=== PATIENT | female | born 1960 | race Two or more races ===

== ENCOUNTER 2020-01-04 09:38 | Outpatient (REF) | payer MEDICAID, SELFPAY ==
--- NOTE | 2020-01-04 09:54 | XR_ITS ---
EXAMINATION: RIGHT KNEE, RIGHT HIP AND LUMBAR SPINE. CLINICAL INFORMATION: Pain. COMPARISON: None. TECHNIQUE: Right hip 2 views. Right knee 2 views. Lumbar spine 5 views. FINDINGS: LUMBAR SPINE: There is normal lumbar lordosis. The vertebral heights, alignment and disc heights are normal. There is no pars defect or listhesis on oblique views. No fracture or lytic process. The paravertebral soft tissues are normal. RIGHT HIP: There is no visible acute fracture, dislocation or subluxation. No bony abnormality seen. The soft tissues unremarkable. RIGHT KNEE: There is minimal loss of medial compartment joint space. Otherwise no visible acute fracture, dislocation or bony erosive changes. No abnormal joint effusion seen. XR/XR hip RT min 2V IMPRESSION: Unremarkable right hip and lumbar spine exam. Early minimal degenerative changes medial compartment right knee.
--- NOTE | 2020-01-04 09:54 | XR_ITS ---
EXAMINATION: RIGHT KNEE, RIGHT HIP AND LUMBAR SPINE. CLINICAL INFORMATION: Pain. COMPARISON: None. TECHNIQUE: Right hip 2 views. Right knee 2 views. Lumbar spine 5 views. FINDINGS: LUMBAR SPINE: There is normal lumbar lordosis. The vertebral heights, alignment and disc heights are normal. There is no pars defect or listhesis on oblique views. No fracture or lytic process. The paravertebral soft tissues are normal. RIGHT HIP: There is no visible acute fracture, dislocation or subluxation. No bony abnormality seen. The soft tissues unremarkable. RIGHT KNEE: There is minimal loss of medial compartment joint space. Otherwise no visible acute fracture, dislocation or bony erosive changes. No abnormal joint effusion seen. XR/XR knee RT 2V IMPRESSION: Unremarkable right hip and lumbar spine exam. Early minimal degenerative changes medial compartment right knee.
--- NOTE | 2020-01-04 09:55 | XR_ITS ---
EXAMINATION: RIGHT KNEE, RIGHT HIP AND LUMBAR SPINE. CLINICAL INFORMATION: Pain. COMPARISON: None. TECHNIQUE: Right hip 2 views. Right knee 2 views. Lumbar spine 5 views. FINDINGS: LUMBAR SPINE: There is normal lumbar lordosis. The vertebral heights, alignment and disc heights are normal. There is no pars defect or listhesis on oblique views. No fracture or lytic process. The paravertebral soft tissues are normal. RIGHT HIP: There is no visible acute fracture, dislocation or subluxation. No bony abnormality seen. The soft tissues unremarkable. RIGHT KNEE: There is minimal loss of medial compartment joint space. Otherwise no visible acute fracture, dislocation or bony erosive changes. No abnormal joint effusion seen. XR/XR lumbar spine 4V min IMPRESSION: Unremarkable right hip and lumbar spine exam. Early minimal degenerative changes medial compartment right knee.
== END 2020-01-04 09:39 | disposition home or self-care (01) ==
LOC: HO.XRAY 09:38
PROVIDERS: PCP Family Medicine; Visit Provider Family Medicine
DX: M54.41 Lumbago with sciatica, right side (principal); M25.561 Pain in right knee; M25.551 Pain in right hip
CPT/HCPCS: 72110; 73502; 73560

== ENCOUNTER 2020-02-08 11:23 | Outpatient (REF) | payer MEDICAID, SELFPAY ==
--- NOTE | 2020-02-08 11:33 | MM_ITS ---
EXAMINATION: MM DIAGNOSTIC DIGITAL BREAST TOMOSYNTHESIS, BILATERAL US TARGETED BREAST, BILATERAL CLINICAL INFORMATION: Bilateral breast pain. The lifetime risk of breast cancer based on the Tyrer-Cuzick Model is 7.1%. COMPARISON: Mammography: None TECHNIQUE: Digital breast tomosynthesis is performed in both the craniocaudal and mediolateral oblique views along with computer-aided detection (CAD). Synthesized 2D images are generated from the tomosynthesis. Bilateral targeted breast ultrasound performed. FINDINGS: The breasts are extremely dense, which lowers the sensitivity of mammography (ACR BI-RADS breast composition Category d). No right breast mass or suspicious grouping of microcalcifications identified. No region of architectural distortion. Within the superior medial aspect of the left breast, there is an approximately 1.4 x 1.0 x 1.1 cm circumscribed density lying approximately 8 cm from the nipple. No associated spiculation or microcalcifications is identified. Targeted ultrasound scanning of the right breast did not demonstrate any abnormal cystic or solid mass. No abnormal region of distal sound shadowing is seen. Targeted ultrasound evaluation of the left breast demonstrated at the 11 o'clock position approximately 8 cm from the nipple, a hypoechoic circumscribed mass without internal vascularity. This measures approximately 1.2 x 0.8 x 0.7 cm in size. No distal sound shadowing is identified. There is minimal distal sound enhancement. Ultrasound-guided biopsy is recommended. Results are discussed with the patient at time of visit. MM/MM tomosynthesis diagnostic BI IMPRESSION: Left breast lesion 11 o'clock position for which ultrasound-guided breast biopsy is recommended. No abnormality in the region of pain. ASSESSMENT: BI-RADS 4: Suspicious RECOMMENDATION: Ultrasound-guided core biopsy left breast.
--- NOTE | 2020-02-08 11:34 | US_ITS ---
EXAMINATION: Bilateral targeted breast ultrasound. Clinical: Bilateral breast pain. Left breast mass 11:00 position. EXAMINATION: Bilateral targeted breast ultrasound. COMPARISON: Mammography of February 08, 2020 Targeted ultrasound scanning of the right breast did not demonstrate any abnormal cystic or solid mass. No abnormal region of distal sound shadowing is seen. Targeted ultrasound evaluation of the left breast demonstrated at the 11 o'clock position approximately 8 cm from the nipple, a hypoechoic circumscribed mass without internal vascularity. This measures approximately 1.2 x 0.8 x 0.7 cm in size. No distal sound shadowing is identified. There is minimal distal sound enhancement. Ultrasound-guided biopsy is recommended. Results are discussed with the patient at time of visit. US/US breast RT limited IMPRESSION: Left breast lesion 11 o'clock position for which ultrasound-guided breast biopsy is recommended. No abnormality in the region of pain. ASSESSMENT: BI-RADS 4: Suspicious RECOMMENDATION: Ultrasound-guided core biopsy left breast.
--- NOTE | 2020-02-08 11:34 | US_ITS ---
EXAMINATION: Bilateral targeted breast ultrasound. Clinical: Bilateral breast pain. Left breast mass 11:00 position. EXAMINATION: Bilateral targeted breast ultrasound. COMPARISON: Mammography of February 08, 2020 Targeted ultrasound scanning of the right breast did not demonstrate any abnormal cystic or solid mass. No abnormal region of distal sound shadowing is seen. Targeted ultrasound evaluation of the left breast demonstrated at the 11 o'clock position approximately 8 cm from the nipple, a hypoechoic circumscribed mass without internal vascularity. This measures approximately 1.2 x 0.8 x 0.7 cm in size. No distal sound shadowing is identified. There is minimal distal sound enhancement. Ultrasound-guided biopsy is recommended. Results are discussed with the patient at time of visit. US/US breast LT limited IMPRESSION: Left breast lesion 11 o'clock position for which ultrasound-guided breast biopsy is recommended. No abnormality in the region of pain. ASSESSMENT: BI-RADS 4: Suspicious RECOMMENDATION: Ultrasound-guided core biopsy left breast.
== END 2020-02-08 11:24 | disposition home or self-care (01) ==
LOC: HO.MAMMO 11:23
PROVIDERS: PCP Family Medicine; Visit Provider Family Medicine
DX: N64.4 Mastodynia (principal)
CPT/HCPCS: 76642; 77062; 77066

== ENCOUNTER 2020-02-12 09:08 | Outpatient (REF) | payer MEDICAID, SELFPAY ==
--- NOTE | 2020-02-12 | MM_ITS ---
EXAMINATION: MM DIAGNOSTIC DIGITAL MAMMOGRAPHY, LEFT CLINICAL INFORMATION: Post biopsy left breast. DIGITAL POST-PROCEDURE MAMMOGRAPHY: Breast density: The tissue is heterogeneously dense which may obscure small masses. BI-RADS version 5, category C. There are no new mammographic findings demonstrated. The postprocedure 2-view direct digital mammogram reveals satisfactory positioning of the biopsy clip. The patient tolerated the procedure well and, after assuring adequate hemostasis, was discharged in good condition after reviewing postbiopsy breast care instructions. Final pathology results are pending. MM/MM diagnostic mammo unilat LT IMPRESSION: 1. No immediate complication from ultrasound-guided percutaneous biopsy left breast. 2. Ultrasound was used to localize and guide marker clip placement. 3. The 2-view direct digital postprocedure mammogram reveals satisfactory positioning of the biopsy clip. 4. Final pathology results are pending. A separate report with final recommendations will be issued once these results are made available.
--- NOTE | 2020-02-12 09:21 | US_ITS ---
PROCEDURE: US GUIDED BREAST BIOPSY, left breast CLINICAL INFORMATION: Suspicious hypoechoic lesion COMPARISON: February 08, 2020 PROCEDURAL DETAILS: The details of the procedure, as well as the risks, benefits, and alternatives to the procedure were explained to the patient in detail and all of her questions were answered, after which written informed consent was obtained. Site and side were confirmed. Prior to the procedure, sonography revealed a 1.1 x 0.8 x 0.8 cm hypoechoic solid-appearing lesion.. A time-out was performed, the lesion intended for biopsy was targeted, and the skin of the left breast was then prepped and draped in the usual sterile fashion. Using sonographic guidance, sterile technique, and 1% lidocaine without epinephrine for local anesthesia, multiple automated core biopsies were obtained through the targeted area with a 14G spring loaded Achieve core biopsy device. There was real-time confirmation of appropriate needle passage. Sampling was documented. At the completion of tissue sampling, a single coil-shaped metallic clip was deposited at the biopsy site. There was no evidence of immediate complication. SPECIMEN: An appropriate sample was obtained. DIGITAL POST-PROCEDURE MAMMOGRAPHY: Breast density: The tissue is heterogeneously dense which may obscure small masses. BI-RADS version 5, category C. There are no new mammographic findings demonstrated. The postprocedure 2-view direct digital mammogram reveals satisfactory positioning of the biopsy clip. The patient tolerated the procedure well and, after assuring adequate hemostasis, was discharged in good condition after reviewing postbiopsy breast care instructions. Final pathology results are pending. US/US breast ndl core biopsy LT IMPRESSION: 1. No immediate complication from ultrasound-guided percutaneous biopsy left breast. 2. Ultrasound was used to localize and guide marker clip placement. 3. The 2-view direct digital postprocedure mammogram reveals satisfactory positioning of the biopsy clip. 4. Final pathology results are pending. A separate report with final recommendations will be issued once these results are made available.
== END 2020-02-12 09:09 | disposition home or self-care (01) ==
LOC: HO.MAMMO 09:08
PROVIDERS: Visit Provider Surgery
DX: N63.22 Unspecified lump in the left breast, upper inner quadrant (principal); Z80.3 Family history of malignant neoplasm of breast
CPT/HCPCS: 19083; 77065; 88305; 99202; A4648

== ENCOUNTER → 2020-02-15 11:19 | Outpatient (BNVA) | payer MEDICAID, SELFPAY | PROVIDERS: PCP Family Medicine; Visit Provider Surgery | DX: D24.9 Benign neoplasm of unspecified breast (principal) | CPT/HCPCS: 99212 ==

== ENCOUNTER → 2020-02-19 08:44 | Outpatient (BNVA) | payer MEDICAID, SELFPAY | PROVIDERS: PCP Family Medicine; Visit Provider Physician Assistant | DX: Z76.89 Persons encountering health services in other specified circumstances (principal) ==

== ENCOUNTER 2020-04-04 14:00 | Outpatient (RCR) | payer MEDICAID, SELFPAY | END 2020-04-17 08:37 | disposition other institution (70) | LOC: HO.PTWFD 14:00 | PROVIDERS: PCP Family Medicine; Visit Provider Family Medicine | DX: M25.551 Pain in right hip (principal); M25.561 Pain in right knee; G89.29 Other chronic pain | CPT/HCPCS: 97012; 97014; 97110; 97112; 97140; 97162; 97530; 97535 ==

== ENCOUNTER 2020-04-30 08:20 | Emergency (ER) | payer MEDICAID, SELFPAY ==
[2020-04-30 08:48] VITALS: BP 139/69; PULSE 72; RESP 18; TEMP 36.7; O2SAT 97; BMI 35.4
--- NOTE | 2020-04-30 09:24 | ED.GENADULT ---
HPI - General Adult General Chief complaint: Headache <ANTONELLA Gutiérrez Last Filed: 04/30/20 09:43> Stated complaint: headache, eye pain <ANTONELLA Gutiérrez Last Filed: 04/30/20 09:43> Time Seen by Provider: 04/30/20 08:57 <ANTONELLA Gutiérrez Last Filed: 04/30/20 09:43> Source: patient <ANTONELLA Gutiérrez Last Filed: 04/30/20 09:43> Mode of arrival: ambulatory <ANTONELLA Gutiérrez Last Filed: 04/30/20 09:43> Limitations: language barrier <ANTONELLA Gutiérrez Last Filed: 04/30/20 09:43> History of Present Illness HPI narrative: 59 y/o female presenting with right eye pain and redness since last night. She also reports a right sided headache for the last 2 days. She gets headaches on/off for the last 2 years. She takes Advil for them with improvement. She denies weakness, numbness, difficulty ambulating. She has photophobia and sensitivity to sound. She reports she has not been wearing her prescription eye glasses because they are broken. She denies foreign body in the right eye but states it hurts every time she blinks. Increased tearing but no discharge. <ANTONELLA Gutiérrez - Last Filed: 04/30/20 09:43> MD complaint: eye pain and headache. <ANTONELLA Gutiérrez Last Filed: 04/30/20 09:43> Onset (ago): day(s) <ANTONELLA Gutiérrez Last Filed: 04/30/20 09:43> Location: head and eyes <ANTONELLA Gutiérrez Last Filed: 04/30/20 09:43> Radiation: non-radiation <ANTONELLA Gutiérrez Last Filed: 04/30/20 09:43> Severity: moderate <ANTONELLA Gutiérrez Last Filed: 04/30/20 09:43> Severity scale (1-10): 5 <ANTONELLA Gutiérrez Last Filed: 04/30/20 09:43> Quality: burning and aching <ANTONELLA Gutiérrez Last Filed: 04/30/20 09:43> Pain Consistency: intermittent <ANTONELLA Gutiérrez Last Filed: 04/30/20 09:43> Relieving factors: none <ANTONELLA Gutiérrez Last Filed: 04/30/20 09:43> Exacerbating factors: other (light and sound make headache worse, blinking makes eye pain worse) <ANTONELLA Gutiérrez Last Filed: 04/30/20 09:43> Associated symptoms: denies other symptoms <ANTONELLA Gutiérrez Last Filed: 04/30/20 09:43> Treatments prior to arrival: NSAID <ANTONELLA Gutiérrez Last Filed: 04/30/20 09:43> Related Data Home medications: Home Medications Medication Instructions Recorded Confirmed cholecalciferol (vitamin D3) 50 50 mcg PO DAILY 02/12/20 02/19/20 mcg (2,000 unit) capsule Previous Rx's Medication Instructions Recorded methylcellulose (laxative) 500 mg 500 mg PO BID #60 tab 02/19/20 tablet [id number] 1 cap PO Q6H PRN #10 cap 04/30/20 [Fioricet] gentamicin 1 drp OPHTHALMIC-RIGHT Q4H #5 ml 04/30/20 <ANTONELLA Gutiérrez Last Filed: 04/30/20 09:43> Allergies/adverse reactions: Allergies Allergy/AdvReac Type Severity Reaction Status Date / Time No Known Allergies Allergy Verified 02/12/20 08:37 <ANTONELLA Gutiérrez Last Filed: 04/30/20 09:43> Review of Systems Review of Systems: Constitutional: No Fever, No Chills ENT/Mouth: No sore throat, No Rhinorrhea, No Swallowing Difficulty Eyes: + Eye Pain, No Swelling, + Redness Cardiovascular: No Chest Pain, No SOB Respiratory: No Cough, No Sputum Gastrointestinal: No Nausea, No Vomiting, No Diarrhea, No abdominal Pain Skin: No Skin Lesions, No rash Neuro: No Weakness, No Numbness, No Dizziness, + Headache Heme/Lymph: No Bruising, No Lymphadenopathy <ANTONELLA Gutiérrez Last Filed: 04/30/20 09:43> [facility] Past Medical History Attestation statement: The following information was validated with the patient. <ANTONELLA Gutiérrez - Last Filed: 04/30/20 09:43> Medical History: Medical History Abdominal pain Abnormality of left breast on screening mammogram Change in bowel function Pre-diabetes <ANTONELLA Gutiérrez - Last Filed: 04/30/20 09:43> Surgical History: Surgical History History of delivery <ANTONELLA Gutiérrez - Last Filed: 04/30/20 09:43> Family History Family History: Family History Sister History of breast cancer <ANTONELLA Gutiérrez - Last Filed: 04/30/20 09:43> Social History Social History: Social History (Updated 02/19/20 @ 11:00 by Maritza Coy PA-C) Alcohol intake: never Smoking Status: Never smoker Use of substances other than those prescribed or required for medical reasons: No Advance Directives: Yes Advance Directives Information Provided: Yes Advance Directives on File: No Current occupational status: unemployed <ANTONELLA Gutiérrez - Last Filed: 04/30/20 09:43> Physical Exam Vital Signs: Vital Signs: Last Vital Signs Temp 98.1 F 04/30/20 08:48 Pulse 72 04/30/20 08:48 Resp 18 04/30/20 08:48 BP 139/69 04/30/20 08:48 Pulse Ox 97 04/30/20 08:48 Body Mass Index 35.4 Appearance: Alert. Oriented X3. No acute distress. HEENT: right eye with lateral scleral injection, PERRLA, EOMI. fluorescene exam reveals small linear corneal abrasion at 9 o.clock CVS: Normal heart rate and rhythm. Pulses normal. Respiratory: No respiratory distress. Skin: Skin warm and dry. Normal skin color. Normal skin turgor. No rashes. Extremities: atraumatic, no LE edema Neuro: Oriented X 3. No motor deficit. No sensory deficit. <ANTONELLA Gutiérrez - Last Filed: 04/30/20 09:43> Vital Signs: Last Vital Signs Temp 98.1 F 04/30/20 08:48 Pulse 72 04/30/20 08:48 Resp 18 04/30/20 08:48 BP 139/69 04/30/20 08:48 Pulse Ox 97 04/30/20 08:48 Body Mass Index 35.4 <Charanjit Queen MD - Last Filed: 05/20/20 07:17> Course Course Course Narrative: 59 y/o female presenting with right sided headache for the last 2 days, similar to her prior headaches for the last 2 years. She took Advil this morning with improvement, pain is only a 3/10 right now. She reports the right eye is more bothersome, denies specific trauma. Does not wear contacts. Exam consistent with corneal abrasion. Will have her start antibiotic drops and follow up with Optho given this is a recurrent issue. Also concerned that she is not wearing her Rx glasses and this can be contributing to headaches. She has been counseled and is stable for discharge. <ANTONELLA Gutiérrez - Last Filed: 04/30/20 09:43> I have reviewed the chart <Charanjit Queen MD - Last Filed: 05/20/20 07:17> Discharge Plan Discharge Clinical Impression: Migraine <ANTONELLA Gutiérrez - Last Filed: 04/30/20 09:43> Patient Disposition: Home, Self-Care <ANTONELLA Gutiérrez - Last Filed: 04/30/20 09:43> Instructions: Migraine Headache (ED), Corneal Abrasion (ED) <ANTONELLA Gutiérrez - Last Filed: 04/30/20 09:43> Additional Instructions: Recommend following up with your eye doctor. Not wearing your prescription glasses can cause worsening headaches. Use the eye drops every 4 hours for the small scratch in your eye. Take the prescription medication for headache as needed. Follow up with your doctor this week. If you have worsening symptoms come back to the ER for further evaluation. <ANTONELLA Gutiérrez - Last Filed: 04/30/20 09:43> Prescriptions: New gentamicin 0.3 % drops 1 drp ophthalmic-Right Q4H Qty: 5 RF: 0 [id number] [Fioricet] 50-300-40 mg capsule 1 cap PO Q6H PRN (Reason: headache) Qty: 10 RF: 0 No Action cholecalciferol (vitamin D3) 50 mcg (2,000 unit) capsule 50 mcg PO DAILY RF: 0 Citrucel 500 mg tablet 500 mg PO BID Qty: 60 RF: 5 <ANTONELLA Gutiérrez - Last Filed: 04/30/20 09:43> Referrals: Som Kaye [Physician] - 2 days <ANTONELLA Gutiérrez - Last Filed: 04/30/20 09:43> Interventions: ED Discharge Assessment Last Done: 04/30/20 09:56 <ANTONELLA Gutiérrez - Last Filed: 04/30/20 09:43> Discharge Date/Time: 04/30/20 09:57 <ANTONELLA Gutiérrez - Last Filed: 04/30/20 09:43> Print Language: Panamanian <ANTONELLA Gutiérrez - Last Filed: 04/30/20 09:43>
[2020-04-30] MEDS: Fluorescein Sodium STRIP 1 STRIP EYE-BOTH (09:28)
[2020-04-30] MEDS: Tetracaine HCl/PF 0.5% Oph Sol 4 ML DROPS 1 DROP EYE-RIGHT (09:28)
--- NOTE | 2020-04-30 09:30 | PC.NURSE ---
pt seen by provider, visual acuity completed, provider at bedside to eval eye w christian lamp
== END 2020-04-30 09:57 | disposition home or self-care (01) ==
PROVIDERS: Emergency Provider Emergency Medicine; PCP Family Medicine
DX: G43.009 Migraine without aura, not intractable, without status migrainosus (principal); S05.01XA Injury of conjunctiva and corneal abrasion without foreign body, right eye, initial encounter; X58.XXXA Exposure to other specified factors, initial encounter; R73.03 Prediabetes; Y93.9 Activity, unspecified; Y92.9 Unspecified place or not applicable; Y99.9 Unspecified external cause status
CPT/HCPCS: 99283; 99284

== ENCOUNTER 2020-08-12 08:33 | Outpatient (REF) | payer MEDICAID, SELFPAY ==
--- NOTE | ~2020-08-12 | FL_ITS ---
EXAMINATION: FL BARIUM SWALLOW CLINICAL INFORMATION: Dysphagia COMPARISON: None TECHNIQUE: Barium swallow examination is performed using fluoroscopic evaluation in addition to multiple fluoroscopic spot views. The patient is imaged both upright and prone and using both thick and thin sulfate along with effervescent granules. A barium tablet was also administered. Fluoroscopy time: 1.4 minutes DAP: 11 Gycm2 Images: 47 FINDINGS: The swallowing mechanism is normal. No aspiration or penetration is seen. There is mass effect on the posterior cervical esophagus from cervical spine bony osteophyte. Esophageal motility is normal. There is a small sliding-type hiatal hernia. There is severe gastroesophageal reflux. The barium tablet passed freely into the stomach. No mass or stricture is seen. FL/FL barium swallow IMPRESSION: Severe gastroesophageal reflux. Small sliding-type hiatal hernia.
== END 2020-08-12 08:34 | disposition home or self-care (01) ==
LOC: HO.XRAY 08:33
PROVIDERS: PCP Family Medicine; Visit Provider Family Medicine
DX: R13.10 Dysphagia, unspecified (principal)
CPT/HCPCS: 74220

== ENCOUNTER → 2020-08-21 13:11 | Outpatient (REF) | payer MEDICAID, SELFPAY ==
--- NOTE | 2020-08-21 13:25 | ECG_ITS ---
Hook-up date: 2020-08-21 13:41:00 Duration: 24:42:00 Test Indications: PALPITATIONS Medications: [id number] QRS complexes 3 Ventricular ectopics which represent <1 % of total QRS comp. 6 Supraventricular ectopics which represent <1 % of total QRS comp. * Paced QRS complexs which represent % of total QRS comp. VENTRICULAR ECTOPY 3 Isolated 0 Bigeminal Cycles 0 Couplets 0 Runs 0 Beats in Runs * Beats LONGEST at * BPM at :: -- * Beats FASTEST at * BPM at :: -- SUPRAVENTRICULAR ECTOPY 4 Isolated 1 Couplets 0 Runs 0 Beats in Runs * Beats LONGEST at * BPM at :: -- * Beats FASTEST at * BPM at :: -- HEART RATES 53 MIN at 05:14:06 2020-08-22 77 AVG 120 MAX at 20:33:27 2020-08-21 LONGEST RR 1.1360 secs at 05:21:24 2020-08-22 S-T LEVELS Channel 1 - 128 mm at 13:41:00 2020-08-21 - 128 mm at 13:41:00 2020-08-21 Channel 2 - 128 mm at 13:41:00 2020-08-21 - 128 mm at 13:41:00 2020-08-21 Channel 3 - 128 mm at 03:30:01 -- - 128 mm at 03:30:01 Basic rhythm Normal sinus rhythm No long pause or profound bradycardia Occasional Premature ventricular complexes Rare Premature atrial complexes Patient reported symptoms of fatigue correlated with NSR Referred By: Kimberly Dos Santos Overread By: STEVEN SANCHEZ MD
== END ==
LOC: HO.CARD 13:11
PROVIDERS: Visit Provider Family Medicine
DX: R00.2 Palpitations (principal)
CPT/HCPCS: 93225; 93226

== ENCOUNTER 2020-11-16 23:20 | Emergency (ER) | payer MEDICAID, SELFPAY ==
[2020-11-17 01:39] VITALS: BP 142/83; PULSE 85; RESP 18; TEMP 36.6; O2SAT 96; BMI 37.3
[2020-11-17 02:00] VITALS: BP 130/71; PULSE 64; RESP 18; O2SAT 98
--- NOTE | 2020-11-17 03:20 | ED.BACK ---
HPI - Back Pain/Injury General Chief Complaint: Back Pain/Injury Stated Complaint: pinched nerve Time Seen by Provider: 11/17/20 02:47 Source: patient and seismic interpreter Mode of arrival: ambulatory History of Present Illness HPI Narrative: 60-year-old female with history of chronic back pain and presents with acute pain at right upper gluteus that she states has been radiating down her right lower extremity for approximately 3 days. She denies any falls or trauma to the area and denies any bowel or bladder issues or fevers/chills. Related Data Home Medications Medication Instructions Recorded Confirmed cholecalciferol (vitamin D3) 50 50 mcg PO DAILY 02/12/20 02/19/20 mcg (2,000 unit) capsule Previous Rx's Medication Instructions Recorded methylcellulose (laxative) 500 mg 500 mg PO BID #60 tab 02/19/20 tablet (Citrucel) [id number]-cmiufkbimtufg-opuqnxiz 1 cap PO Q6H PRN #10 cap 04/30/20 50 mg-300 mg-40 mg capsule (Fioricet) gentamicin 0.3 % eye drops 1 drp OPHTHALMIC-RIGHT Q4H #5 ml 04/30/20 Allergies Allergy/AdvReac Type Severity Reaction Status Date / Time No Known Allergies Allergy Verified 11/17/20 01:39 Review of Systems Review of Systems: Pertinent positives and negatives as stated in HPI 10 point review of systems is otherwise negative. [facility] Past Medical History Source: nursing notes reviewed Medical History Abdominal pain Abnormality of left breast on screening mammogram Change in bowel function Pre-diabetes Surgical History History of delivery Family History Family History Sister History of breast cancer Social History Social History Household Members Other:: lives at daughters house- getting apartment soon- Alcohol intake: never Advance Directives: No Advance Directives Information Provided: Yes Patient : No Current occupational status: unemployed Physical Exam Vital Signs: Vital Signs: Last Vital Signs Temp 97.9 F 11/17/20 01:39 Pulse 85 11/17/20 01:39 Resp 18 11/17/20 01:39 BP 142/83 H 11/17/20 01:39 Pulse Ox 96 11/17/20 01:39 Body Mass Index 37.3 VITAL SIGNS: Reviewed. GENERAL: Well developed, well nourished, in no acute distress. HEAD: Normocephalic/atraumatic EYES: PERRLA, EOMI OROPHARYNX: no oral lesions noted, posterior pharynx clear LUNGS: Normal breath sounds. No adventitious sounds or accessory muscle use. SpO2<96> CARDIOVASCULAR: Regular rate and rhythm without noted murmurs ABDOMEN: Soft, non-tender, non-distended with bowel sounds. BACK: Straight early test negative, no midline vertebral tenderness and no muscle spasm NEUROLOGIC: Alert and oriented x 4. Strength and sensation to light touch were grossly intact x 4. Course Course Course Narrative: 60-year-old female with acute on chronic lower back discomfort and evidence to suggest radicular pain into the right lower extremity. There is no evidence of infectious etiology. Patient was treated with combination analgesics and on re-evaluation reports improvement in her symptoms. Discharge Plan Discharge Clinical Impression: Back pain Patient Disposition: Home, Self-Care Instructions: Lumbar Radiculopathy (ED), Plantar Fasciitis (ED), Plantar Fasciitis Exercises (ED) Additional Instructions: 1. Reanude todos los medicamentos caseros seg?n lo prescrito. 2. Tylenol 1000 mg, por v?a oral, cada 6 horas seg?n sea necesario para controlar el dolor. No exceda los 4000 mg en 24 horas. 3. Ibuprofeno 400 mg, por v?a oral con leche o alimentos, cada 6 horas seg?n sea necesario para controlar el dolor. 4. Parche de lidoca?na, disponible sin receta, apl?quelo en el ?marv de m?xima sensibilidad serafin se indica en el empaque exterior. 5. Jr un seguimiento con martin proveedor de atenci?n primaria para elizabeth reevaluaci?n y un tratamiento ambulatorio adicional en los pr?ximos 2-3 d?as. Regrese a la janette de emergencias por un empeoramiento sunita de los s?ntomas. Prescriptions: No Action gentamicin 0.3 % drops 1 drp ophthalmic-Right Q4H Qty: 5 RF: 0 quektbzsql-hstystrqdmbex-hnpy [Fioricet] 50-300-40 mg capsule 1 cap PO Q6H PRN (Reason: headache) Qty: 10 RF: 0 cholecalciferol (vitamin D3) 50 mcg (2,000 unit) capsule 50 mcg PO DAILY RF: 0 Citrucel 500 mg tablet 500 mg PO BID Qty: 60 RF: 5 Referrals: Kimberly Dos Santos MD [Primary Care Provider] - 2 days Print Language: Namibian
[2020-11-17] MEDS: Acetaminophen 325 MG TABLET 975 MG PO (03:32)
[2020-11-17] MEDS: Lidocaine 4 % Patch ADH..PATCH 1 PATCH TRANSDERMA (03:33)
[2020-11-17] MEDS: Ketorolac Tromethamine 15 MG/ML VIAL IM (03:33)
== END 2020-11-17 03:47 | disposition home or self-care (01) ==
PROVIDERS: Emergency Provider Student in an Organized Health Care Education/Training Program; PCP Family Medicine
DX: M54.5 Low back pain (principal); Z79.899 Other long term (current) drug therapy
CPT/HCPCS: 96372; 99284; J1885

== ENCOUNTER 2021-02-20 09:39 | Outpatient (REF) | payer MEDICAID, SELFPAY ==
--- NOTE | ~2021-02-20 | MM_ITS ---
EXAMINATION: MM SCREENING DIGITAL BREAST TOMOSYNTHESIS, BILATERAL CLINICAL INFORMATION: Screening. Asymptomatic. Benign left ultrasound guided core biopsy 02/12/2020 (fibroadenoma). The lifetime risk of breast cancer based on the Tyrer-Cuzick Model is 5%. COMPARISON: Mammography: 02/12/2020, 02/08/2020 (new baseline); bilateral breast ultrasound 02/08/2020, left ultrasound-guided core biopsy 02/12/2020 TECHNIQUE: Digital breast tomosynthesis is performed in both the craniocaudal and mediolateral oblique views along with computer-aided detection (CAD). Synthesized 2D images are generated from the tomosynthesis. FINDINGS: The breasts are heterogeneously dense, which may obscure small masses (ACR BI-RADS breast composition Category c). Breast tissue pattern borders on extremely dense. There is fine fibronodular parenchymal pattern similar to prior exams. The previously sampled fibroadenoma posterior central 9:30 o'clock left breast is stable. There are scattered punctate and vascular calcifications again seen. No developing density or interval mass or architectural abnormality. No significant changes. MM/MM tomosynthesis screening BI IMPRESSION: No mammographic evidence of malignancy. ASSESSMENT: BI-RADS 2: Benign RECOMMENDATION: Routine annual mammography screening. This patient's information was entered into a reminder system with a target due date for their next mammogram.
== END 2021-02-20 09:40 | disposition home or self-care (01) ==
LOC: HO.MAMMO 09:39
PROVIDERS: PCP Family Medicine; Visit Provider Nurse Practitioner Women's Health
DX: Z12.31 Encounter for screening mammogram for malignant neoplasm of breast (principal)
CPT/HCPCS: 77063; 77067

== ENCOUNTER → 2021-09-02 09:41 | Outpatient (BNVA) | payer MEDICAID, SELFPAY | PROVIDERS: PCP Family Medicine; Visit Provider Orthopaedic Surgery | DX: R20.0 Anesthesia of skin (principal); R20.2 Paresthesia of skin; M65.321 Trigger finger, right index finger | CPT/HCPCS: 99202 ==

== ENCOUNTER 2021-11-12 08:06 | Outpatient (REF) | payer MEDICAID, SELFPAY ==
--- NOTE | 2021-11-12 08:05 | EMG_ITS ---
Right median and ulnar motor and sensory studies were performed. Right radial sensory study was performed and paraspinal muscles were tested with a needle. IMPRESSION: Ynkg-wr-hfyalenv right median neuropathy across carpal tunnel. MD MAGDALENA Meeks/EDD / [id number]
== END 2021-11-12 08:07 | disposition home or self-care (01) ==
LOC: HO.NEURO 08:06
PROVIDERS: Visit Provider Orthopaedic Surgery
DX: R20.0 Anesthesia of skin (principal); R20.2 Paresthesia of skin
CPT/HCPCS: 95886; 95909

== ENCOUNTER 2022-02-26 09:18 | Outpatient (REF) | payer MEDICAID, SELFPAY ==
--- NOTE | ~2022-02-26 | MM_ITS ---
EXAMINATION: MM SCREENING DIGITAL BREAST TOMOSYNTHESIS, BILATERAL CLINICAL INFORMATION: Screening. Asymptomatic. The lifetime risk of breast cancer based on the Tyrer-Cuzick Model is 5.1%. COMPARISON: Mammography: 02/20/2021 and studies dating back to 02/08/2020. TECHNIQUE: Digital breast tomosynthesis is performed in both the craniocaudal and mediolateral oblique views along with computer-aided detection (CAD). Synthesized 2-D images are generated from the tomosynthesis. FINDINGS: The breasts are extremely dense, which lowers the sensitivity of mammography (ACR BI-RADS breast composition Category d). There is a stable parenchymal pattern of the right breast. Within the inferior medial aspect deep left breast, there is a grouping of calcifications that I cannot definitely say are vascular in nature and for which spot magnification views are recommended. MM/MM tomosynthesis screening BI IMPRESSION: Grouping of calcifications deep inferior medial left breast for further evaluation with spot magnification views. ASSESSMENT: BI-RADS 0: Incomplete - Need Additional Imaging Evaluation RECOMMENDATION: 1. Additional views of the left breast. 2. Targeted ultrasound if warranted after review of the additional views. 3. Radiology department staff will contact the patient for additional imaging. This patient's information was entered into a reminder system with a target due date for their next mammogram.
== END 2022-02-26 09:19 | disposition home or self-care (01) ==
LOC: HO.MAMMO 09:18
PROVIDERS: PCP Family Medicine; Visit Provider Family Medicine
DX: Z12.31 Encounter for screening mammogram for malignant neoplasm of breast (principal)
CPT/HCPCS: 77063; 77067

== ENCOUNTER 2022-03-16 13:10 | Outpatient (REF) | payer MEDICAID, SELFPAY ==
--- NOTE | ~2022-03-16 | MM_ITS ---
EXAMINATION: MM DIAGNOSTIC DIGITAL MAMMOGRAPHY, LEFT CLINICAL INFORMATION: Recall from screening for grouped calcifications posterior central medial left breast. COMPARISON: Mammography: 02/26/2022, 02/20/2021, 02/12/2020 TECHNIQUE: Digital mammography is performed in the following views: Magnification CC, magnification LM FINDINGS: The breasts are heterogeneously dense, which may obscure small masses (ACR BI-RADS breast composition Category c). The magnification views show tightly grouped pleomorphic heterogeneous calcifications, some coarse and irregular at site of clinical concern. This represents change from prior studies. Stereotactic sampling is recommended. Results are discussed with the patient at time of visit, using an group rooms coordinator. Results and recommendation called to ophthalmic medical assistant (Ramila) for Dr. Dos Santos on 03/16/2022 MM/MM added views LT IMPRESSION: -Grouped pleomorphic heterogeneous calcifications posterior central medial left breast. ASSESSMENT: BI-RADS 4: Suspicious RECOMMENDATION: Stereotactic biopsy left breast calcifications. This patient's information was entered into a reminder system with a target due date for their next mammogram.
== END 2022-03-16 13:11 | disposition home or self-care (01) ==
LOC: HO.MAMMO 13:10
PROVIDERS: PCP Family Medicine; Visit Provider Family Medicine
DX: R92.1 Mammographic calcification found on diagnostic imaging of breast (principal)
CPT/HCPCS: 77065

== ENCOUNTER 2022-03-19 09:20 | Outpatient (REF) | payer MEDICAID, SELFPAY ==
--- NOTE | ~2022-03-19 | MM_ITS ---
EXAMINATION: STEREOTACTIC TOMOSYNTHESIS-GUIDED VACUUM-ASSISTED BREAST BIOPSY, LEFT SPECIMEN RADIOGRAPH, LEFT POST PROCEDURE DIGITAL MAMMOGRAM, LEFT CLINICAL INFORMATION: Indeterminate calcifications deep inferior medial left breast. COMPARISON: March 16, 2022 and studies dating back to February 08, 2020. TECHNIQUE/PROCEDURE: Informed consent was obtained from the patient after discussion of the benefits, risks, and alternatives to biopsy today. Patient appeared to understand. Gave opportunity for questions. Patient signed consent form. BIOPSY TABLE: [employer] Affirm Prone Biopsy System. LESION: Indeterminate calcifications. LOCAL ANESTHESIA: 10 mL 1% lidocaine; 20 mL 1% lidocaine with epinephrine. DERMATOTOMY: Single skin lala dermatotomy performed. NEEDLE: [employer] Eviva 9-gauge vacuum assisted core biopsy device. APPROACH: caudal cranial. TARGETING: Digital breast tomosynthesis used for targeting. CORES: 13. CLIP: [employer] SecurMark Cylinder-shaped marker. SPECIMEN RADIOGRAPH: Specimen radiograph is taken in separate room using digital mammography. The index calcifications are in the excised cores. POST PROCEDURE UNILATERAL DIGITAL MAMMOGRAM: The post biopsy mammogram is performed in separate room using separate digital mammography equipment from the biopsy procedure. 2 views are obtained. The breasts are heterogeneously dense, which may obscure small masses (breast composition category: c). The clip marker is in position. The calcifications are markedly decreased at the biopsy site. No gross hematoma. The patient tolerated the procedure well. No immediate complications. Home instructions reviewed with the patient. Final pathology results are pending. MM/MM stereotactic biopsy LT IMPRESSION: 1. Digital tomosynthesis-guided core biopsy left breast with clip placement. 2. Specimen radiograph taken and post procedure mammogram. There is satisfactory positioning of the biopsy clip. 3. Final pathology results pending. An addendum report will be issued.
[2022-03-19] MEDS: Lidocaine HCl 1 % 20 ML VIAL 9 ML SUBCUT (10:48)
[2022-03-19] MEDS: Sodium Bicarbonate 8.4% 50 MEQ/50 ML VIAL SUBCUT (10:50)
[2022-03-19] MEDS: Lidocaine HCl 1% PF/Epi 1:200,000 30 ML VIAL 20 ML SUBCUT (10:51)
== END 2022-03-19 09:21 | disposition home or self-care (01) ==
LOC: HO.MAMMO 09:20
PROVIDERS: PCP Family Medicine; Visit Provider Surgery
DX: R92.1 Mammographic calcification found on diagnostic imaging of breast (principal); R92.8 Other abnormal and inconclusive findings on diagnostic imaging of breast; Z79.899 Other long term (current) drug therapy
CPT/HCPCS: 19081; 88305; 99202

== ENCOUNTER → 2022-03-26 11:30 | Outpatient (BNVA) | payer MEDICAID, SELFPAY | PROVIDERS: PCP Family Medicine; Visit Provider Surgery | DX: R92.8 Other abnormal and inconclusive findings on diagnostic imaging of breast (principal) | CPT/HCPCS: 99212 ==

== ENCOUNTER 2022-10-18 13:07 | Outpatient (REF) | payer MEDICAID, SELFPAY ==
--- NOTE | ~2022-10-18 | XR_ITS ---
X-RAY LEFT HAND AND LEFT WRIST CLINICAL HISTORY: Left-sided wrist and thumb De Quervain's disease. COMPARISON: No relevant prior studies are available for comparison. TECHNIQUE: 3 views of the left wrist and 3 views of the left hand. FINDINGS: Left wrist: No acute fractures or subluxation. Mild joint space narrowing and subcortical sclerosis of the triscaphe space and first carpometacarpal joint. No erosive changes. No abnormal soft tissue calcifications. Left hand: No acute fractures or subluxation. Moderate multifocal degenerative osteoarthritis with joint space narrowing, subcortical sclerosis and small osteophytes more noticeable within the third through fourth distal interphalangeal joints. Possibly small marginal erosions on the third DIP joint. No chondrocalcinosis. XR/XR wrist LT min 3V IMPRESSION: 1. No acute fractures or subluxation. 2. Moderate multifocal degenerative osteoarthritis. 3. Possibly small marginal erosions on the third DIP joint which could be associated with erosive osteoarthritis.
--- NOTE | ~2022-10-18 | XR_ITS ---
X-RAY LEFT HAND AND LEFT WRIST CLINICAL HISTORY: Left-sided wrist and thumb De Quervain's disease. COMPARISON: No relevant prior studies are available for comparison. TECHNIQUE: 3 views of the left wrist and 3 views of the left hand. FINDINGS: Left wrist: No acute fractures or subluxation. Mild joint space narrowing and subcortical sclerosis of the triscaphe space and first carpometacarpal joint. No erosive changes. No abnormal soft tissue calcifications. Left hand: No acute fractures or subluxation. Moderate multifocal degenerative osteoarthritis with joint space narrowing, subcortical sclerosis and small osteophytes more noticeable within the third through fourth distal interphalangeal joints. Possibly small marginal erosions on the third DIP joint. No chondrocalcinosis. XR/XR hand LT min 3V IMPRESSION: 1. No acute fractures or subluxation. 2. Moderate multifocal degenerative osteoarthritis. 3. Possibly small marginal erosions on the third DIP joint which could be associated with erosive osteoarthritis.
== END 2022-10-18 13:08 | disposition home or self-care (01) ==
LOC: HO.HHCX 13:07
PROVIDERS: Visit Provider Family Medicine
DX: M65.4 Radial styloid tenosynovitis [de Quervain] (principal)
CPT/HCPCS: 73110; 73130

== ENCOUNTER 2022-10-18 13:27 | Outpatient (REF) | payer MEDICAID, SELFPAY ==
[2022-10-18 17:47] LABS: MANUAL DIFF FLAG NO
[2022-10-18 18:01] LABS: Basophils Absolute Auto 0.1 X10*3/uL (0.0-0.2); Eosinophils Absolute Auto 0.1 X10*3/uL (0.0-0.4); Eosinophils Percent Auto 1.5 % (0-4); Hematocrit 42.1 % (37.0-47.0); Hemoglobin 13.9 g/dl (12.0-16.0); Imm Gran Abs Auto 0.01 X10*3/uL (0.00-0.03); Imm Gran Pct Auto 0.2 % (0.0-0.4); Lymphocytes Absolute Auto 1.6 X10*3/uL (1.2-4.9); Lymphocytes Percent Auto 25.6 % (20-40); Mean Corpuscular Hemoglobin 29.6 pg (27.0-33.0); Mean Corpuscular Volume 89.8 fL (80.0-98.0); Mean Platelet Volume 11.9 fL (9.4-12.3); Monocytes Absolute Auto 0.4 X10*3/uL (0.1-1.2); Monocytes Percent Auto 6.6 % (2-11); Neutrophils Percent Auto 65.1 % (45-73); Platelet Count 238 X10*3/uL (160-400); Red Blood Count 4.69 X10*6/uL (4.20-5.50); Red Cell Distribution Width 12.7 % (11.0-16.0); White Blood Count 6.1 X10*3/uL (4.8-10.8)
[2022-10-19 01:58] LABS: Alanine Aminotransferase 15 U/L (0-31); Albumin Level 4.1 g/dL (3.5-5.0); Alkaline Phosphatase 70 U/L (39-117); Anion Gap 12 (12-20); Aspartate Amino Transferase 18 U/L (5-31); Bilirubin Total 0.5 mg/dL (0.0-1.0); Blood Urea Nitrogen 14 mg/dL (9-16); Calcium 9.7 mg/dL (8.4-10.2); Carbon Dioxide 25 mmol/L (22-29); Chloride 107 mmol/L (96-108); Cholesterol 196 mg/dL; Estimated Glomerular Filt Rate > 60; Glucose Random 91 mg/dL (60-115); HDL Cholesterol 75 mg/dL; LDL Cholesterol Calculated 112 mg/dl; Potassium 4.3 mmol/L (3.3-5.1); Sodium 140 mmol/L (135-145); Thyroid Stimulating Hormone 0.73 uIU/mL (0.32-4.0); Total Protein 7.5 g/dL (6.5-8.0); Triglycerides 49 mg/dL
== END 2022-10-18 13:28 | disposition home or self-care (01) ==
LOC: HO.HHCL 13:27
PROVIDERS: Visit Provider Family Medicine
DX: E78.5 Hyperlipidemia, unspecified (principal)
CPT/HCPCS: 36415; 80053; 80061; 84443; 85025

== ENCOUNTER 2023-04-21 13:33 | Outpatient (REF) | payer MEDICAID, SELFPAY ==
--- NOTE | ~2023-04-21 | MM_ITS ---
EXAMINATION: MM SCREENING DIGITAL BREAST TOMOSYNTHESIS, BILATERAL CLINICAL INFORMATION: Screening. Asymptomatic. COMPARISON: Mammography: This study is compared with prior exams dating back to 2019. TECHNIQUE: Digital breast tomosynthesis is performed in both the craniocaudal and mediolateral oblique views along with computer-aided detection (CAD). Synthesized 2D images are generated from the tomosynthesis. FINDINGS: The breasts are heterogeneously dense, which may obscure small masses (ACR BI-RADS breast composition Category c). There are no significant masses, abnormal calcifications, or other abnormalities. There are 2 tissue markers in the medial aspect of the left breast from prior benign percutaneous biopsies. MM/MM tomosynthesis screening BI IMPRESSION: No mammographic evidence of malignancy. ASSESSMENT: BI-RADS BI-RADS 2 - Benign Findings RECOMMENDATION: Routine annual mammography screening. 1 year F/U This examination should not preclude the clinical evaluation of a suspicious palpable abnormality. This patient's information was entered into a reminder system with a target due date for their next mammogram.
== END 2023-04-21 13:34 | disposition home or self-care (01) ==
LOC: HO.MAMMO 13:33
PROVIDERS: PCP Family Medicine; Visit Provider Family Medicine
DX: Z12.31 Encounter for screening mammogram for malignant neoplasm of breast (principal)
CPT/HCPCS: 77063; 77067

== ENCOUNTER → 2023-04-21 13:45 | Outpatient (BNV) | payer MEDICAID, SELFPAY | PROVIDERS: PCP Family Medicine; Visit Provider Radiology Diagnostic Radiology | DX: Z12.31 Encounter for screening mammogram for malignant neoplasm of breast (principal) | CPT/HCPCS: 77063; 77067 ==